=== PATIENT | male | born 1950 | race Caucasian/White ===

== ENCOUNTER 2023-07-24 09:33 | Emergency (ER) | payer MEDICARE ==
[2023-07-24] MEDS ORDERED: Ketamine In 0.9 % NaCl 50 MG/5 ML SYRINGE ONE (10:17)
[2023-07-24] MEDS ORDERED: HYDROcodone/Acetaminophen 5/325 mg Tablet ONE (11:21)
[2023-07-24] MEDS ORDERED: Lidocaine 4% Patch TD SCH (12:00)
[2023-07-24] MEDS ORDERED: Transdermal Patch Removal TOP SCH (23:59)
== END 2023-07-24 12:13 | disposition home or self-care (01) ==
LOC: ERS 09:33
DX: B02.9 Zoster without complications (principal); I10 Essential (primary) hypertension; E11.9 Type 2 diabetes mellitus without complications; K21.9 Gastro-esophageal reflux disease without esophagitis; Z79.84 Long term (current) use of oral hypoglycemic drugs; Z79.899 Other long term (current) drug therapy
CPT/HCPCS: 96372; 99282; J3490

== ENCOUNTER 2023-07-26 15:34 | Emergency (ER) | payer MEDICARE ==
[2023-07-26] MEDS ORDERED: HYDROcodone/Acetaminophen 10/325 mg Tablet ONE (16:59)
== END 2023-07-26 18:10 | disposition home or self-care (01) ==
LOC: ERS 15:34
DX: B02.23 Postherpetic polyneuropathy (principal); B02.9 Zoster without complications; E11.9 Type 2 diabetes mellitus without complications; I10 Essential (primary) hypertension
CPT/HCPCS: 99282

== ENCOUNTER 2025-05-03 10:52 | Emergency (ER) | payer MEDICARE ==
[2025-05-03 11:26] LABS: #Basophils Less than 0.03 10x3/uL (0.0-0.2); #Eosinophils 0.26 10x3/uL (0.0-0.7); #Monocytes 0.60 10x3/uL (0.11-0.59); #Neutrophils 2.36 10x3/uL (1.40-6.50); %Basophils 0.5 % (0.0-1.0); %Eosinophils 5.9 % (0.0-10.0); %Lymphocytes 26.1 % (21.0-51.0); %Monocytes 13.6 % (0.0-10.0); %Neutrophils 53.7 % (42.0-75.0); Hematocrit 38.2 % (42.0-52.0); Hemoglobin 12.3 g/dL (14.0-18.0); Mean Corpuscular Hemoglobin 29.1 pg (27.0-31.0); Mean Corpuscular Volume 90.3 fL (78.0-98.0); Platelet Count 161 10x3/uL (130-400); Red Blood Cell (RBC) Count 4.23 mill/uL (4.70-6.10); White Blood Cell (WBC) Count 4.40 10x3/uL (4.8-10.8)
[2025-05-03 11:43] LABS: INR-International Normal Ratio 0.9; Prothrombin Time 11.9 sec (12.0-14.7)
[2025-05-03 11:44] LABS: PTT 27.8 sec (22.9-36.1)
[2025-05-03 11:46] LABS: D-Dimer Test 0.71 mcg/mL (0.27-0.43)
[2025-05-03 11:54] LABS: ALT (SGPT) 15 U/L (Less than 45); AST (SGOT) 27 U/L (11-34); Albumin 4.0 g/dL (3.1-4.5); Alkaline Phosphatase 63 U/L (40-110); Anion Gap 12 mmol/L (10-20); BUN (Urea Nitrogen) 13 mg/dL (8.4-25.7); Bilirubin, Total 0.4 mg/dL (0.3-1.2); Calc. Creatinine Clearance 0 mL/min (70-130); Calcium 9.3 mg/dL (7.8-10.44); Carbon Dioxide 27 mmol/L (23-31); Chloride 104 mmol/L (98-107); Globulin 2.7 g/dL (2.4-3.5); Glucose 118 mg/dL (83-110); Magnesium 2.0 mg/dL (1.6-2.6); Potassium 4.1 mmol/L (3.5-5.1); Sodium 139 mmol/L (136-145)
[2025-05-03 12:06] LABS: Actual Bicarbonate (HCO3v) 26.8 mEq/L (22-28); Base Excess 0.6 mEq/L (-2.0 to +3.0); Calcium, Ionized (venous) 1.16 mmol/L (1.16-1.32); Chloride (VBG) 102 mmol/L (98-106); Hematocrit-VBG 39 % (42.0-52.0); Hemoglobin (Hb) 13.3 g/dL (12.6-17.4); Potassium (VBG) 3.94 mmol/L (3.70-5.30); Sodium 139 mmol/L (133-146)
[2025-05-03 12:18] LABS: Bacteria/HPF None Seen HPF (None Seen); CAUTI Indications for Culture Alt mental st,lethar; Glucose, Urine (Dipstick) Normal (Negative); Leukocyte Negative Leu/uL (Negative); Protein, Urine (Dipstick) Negative (Neg-Trace); RBC/HPF 0-3 HPF (0-3); Specific Gravity, Urine 1.005 (1.002-1.036); WBC/HPF None Seen HPF (0-3)
[2025-05-03 12:22] LABS: Urine Culture Reflex No No
== END 2025-05-03 15:30 | disposition home or self-care (01) ==
LOC: ERS 10:52
DX: R42 Dizziness and giddiness (principal); I10 Essential (primary) hypertension; E11.9 Type 2 diabetes mellitus without complications; Z79.84 Long term (current) use of oral hypoglycemic drugs; Z98.890 Other specified postprocedural states
CPT/HCPCS: 70450; 71045; 80053; 81001; 82805; 83735; 84443; 84484; 85025; 85379; 85610; 85730; 93005; 94760